=== PATIENT | female | born 2000 | race Caucasian/White ===

== ENCOUNTER → 2020-11-14 | Outpatient (CLI) | payer OTHER | LOC: KOH-I 13:16 | DX: R06.02 Shortness of breath (principal) | CPT/HCPCS: 71046 ==

== ENCOUNTER 2022-02-21 11:19 | Outpatient (CLI) | payer OTHER ==
[2022-02-22] MEDS ORDERED: PRENATAL VITAM1 EAC6 PO (11:21)
[2022-02-22] MEDS ORDERED: IBUPROFEN600 MG PO (20:54)
[2022-02-22] MEDS ORDERED: DOCUSATE SODIU100 MG PO (20:54)
== END 2022-02-21 13:34 | disposition home or self-care (01) ==
LOC: GENOP 11:19
DX: O99.891 Other specified diseases and conditions complicating pregnancy (principal); N89.8 Other specified noninflammatory disorders of vagina; Z3A.39 39 weeks gestation of pregnancy
CPT/HCPCS: 59025; 81001

== ENCOUNTER 2022-02-22 10:09 | Inpatient (IN) | payer OTHER ==
[~2022-02-22] VITALS: Ht 160 cm; Wt 81.6 kg
[2022-02-22] MEDS ORDERED: PRENATAL VITAM1 EAC6 PO (11:21)
[2022-02-22 11:26] LABS: HEMOGLOBIN 13.6 gm/dl (12.3-15.3); RED BLOOD COUNT 4.47 M/UL (4.00-5.10); WHITE BLOOD COUNT 10.4 K/UL (4.5-11.0)
[2022-02-22] MEDS ORDERED: DOCUSATE SODIU100 MG PO (20:54)
[2022-02-22] MEDS ORDERED: IBUPROFEN600 MG PO (20:54)
[2022-02-23 04:41] LABS: HEMOGLOBIN 11.8 gm/dl (12.3-15.3)
== END 2022-02-24 15:45 | disposition home or self-care (01) | DRG 807 ==
LOC: GENOP 10:09 → OB 10:58
PROVIDERS: ADMIT Obstetrics & Gynecology
PROC: 10E0XZZ Delivery of Products of Conception, External Approach (ICD-10-PCS; principal; 2022-02-22)
PROC: 10907ZC Drainage of Amniotic Fluid, Therapeutic from Products of Conception, Via Natural or Artificial Opening (ICD-10-PCS; 2022-02-22)
PROC: 0HQ9XZZ Repair Perineum Skin, External Approach (ICD-10-PCS; 2022-02-22)
PROC: 4A1HXCZ Monitoring of Products of Conception, Cardiac Rate, External Approach (ICD-10-PCS; 2022-02-22)
PROC: 4A1HXFZ Monitoring of Products of Conception, Cardiac Rhythm, External Approach (ICD-10-PCS; 2022-02-22)
PROC: 3E0234Z Introduction of Serum, Toxoid and Vaccine into Muscle, Percutaneous Approach (ICD-10-PCS; 2022-02-22)
DX: O99.824 Streptococcus B carrier state complicating childbirth (principal); Z37.0 Single live birth; O99.52 Diseases of the respiratory system complicating childbirth; J45.909 Unspecified asthma, uncomplicated; O99.334 Smoking (tobacco) complicating childbirth; F17.200 Nicotine dependence, unspecified, uncomplicated; O77.0 Labor and delivery complicated by meconium in amniotic fluid; Z3A.40 40 weeks gestation of pregnancy; Z23 Encounter for immunization; O70.0 First degree perineal laceration during delivery
CPT/HCPCS: 36415; 82800; 85014; 85018; 85025; 90715; 96372; J2405; J2590; J7120